=== PATIENT | female | born 1960 | race Caucasian/White ===

== ENCOUNTER → 2021-07-07 | Outpatient (CLI) | payer BC, OTHER ==
--- NOTE | 2021-07-24 11:43 | RAD ---
EXAM: Bilateral digital screening mammogram with tomosynthesis. HISTORY: 60-year-old female presents for screening mammography. TECHNIQUE: Full-field digital craniocaudal and mediolateral oblique 2D and 3D tomosynthesis images of both breasts are obtained for evaluation. Computer aided detection was applied. COMPARISON: There is no prior study for comparison 17 days following the exam. This exam will be dict ated as a new baseline screening mammogram. An addendum will be submitted to the prior study becomes available a letter date. BREAST PARENCHYMAL DENSITY: Level C - Heterogeneously dense. FINDINGS: There are multiple areas of nodularity and nodular asymmetry within both breasts, the most conspicuous of which are seen at the 12:00 position of the left breast at mid depth, the 7:30 positio n of the left breast at anterior to mid depth, the 4:30 position of the left breast at anterior depth , the 6:00 position of the right breast at mid depth and the 3:00 position of the right breast at ant erior depth. There is also nodularity within the subareolar aspect of the right breast. There is a me tallic clip with slight associated distortion within the anterior medial right breast likely due to p ostbiopsy scarring. There is no suspicious calcification. IMPRESSION: BI-RADS Category 0: Incomplete. Additional imaging needed. RECOMMENDATION: Multiple areas of nodularity and nodular asymmetry throughout both breasts and distor tion possibly due to prior biopsy within the medial right breast. Further evaluation with full field true lateral views and spot compression views of the areas of abnormality demarcated on the screening mammogram images is recommended. Sonographic imaging of both breasts will also likely be indicated b ased on mammographic findings. If your mammogram demonstrates that you have dense breast tissue, which could hide abnormalities, and if you have other risk factors for breast cancer that have been identified, you might benefit from s upplemental screening tests that may be suggested by your ordering physician. Dense breast tissue, i n and of itself, is a relatively common condition. This information is not provided to cause undue c oncern, but rather to raise your awareness and to promote discussion with your physician regarding th e presence of other risk factors, in addition to dense breast tissue. A report of your mammography re sults will be sent to you and your physician. You should contact your physician if you have any ques tions or concerns regarding this report. Mammography is a sensitive method for finding small breast cancers, but it does not detect them all a nd is not a substitute for careful clinical examination. A negative mammogram does not negate a clin ically suspicious finding and should not result in delay in biopsying a clinically suspicious abnorma lity. PQRS compliance statement - Patient information was entered into a reminder system with a target due date for the next mammogram. "Our facility is accredited by the [employer] Mammography [employer]." Electronically signed by: Sol Nguyen MD (07/24/2021 11:41 AM) [id number]
== END ==
LOC: MAMMO 09:22
PROVIDERS: ATTEND Physician Assistant Medical
DX: Z12.31 Encounter for screening mammogram for malignant neoplasm of breast (principal); N64.89 Other specified disorders of breast
CPT/HCPCS: 77063; 77067